=== PATIENT | male | born 1990 | race Caucasian/White ===

== ENCOUNTER 2021-06-11 07:50 | Emergency (ER) | payer OTHER, SELFPAY ==
[2021-06-11 08:11] VITALS: BP 128/88; PULSE 70; RESP 12; TEMP 36.6; O2SAT 99
--- NOTE | 2021-06-11 09:28 | ED.EYEPROB ---
HPI - Eye Problem General Chief complaint: Eye Problems Stated complaint: left eye pain Time Seen by Provider: 06/11/21 09:01 Source: patient Mode of arrival: ambulatory Limitations: no limitations History of Present Illness HPI Narrative: 30 years old white male, grinding yesterday, left eye foreign body. Denied vision abnormality, Related Data Allergies Allergy/AdvReac Type Severity Reaction Status Date / Time amoxicillin Allergy Severe Verified 03/28/17 10:55 Penicillins Allergy Severe Verified 03/28/17 10:55 Review of Systems Review of Systems: CONSTITUTIONAL: Denies fever, chills, or sweats. EYES: Denies visual changes, redness, or discharge. ENT: Denies rhinorrhea, congestion, sore throat, or otalgia. CARDIOVASCULAR: Denies chest pain, palpitations, or edema. RESPIRATORY: Denies cough or dyspnea. GASTROINTESTINAL: Denies abdominal pain, nausea, vomiting, or diarrhea. GENITOURINARY: Denies dysuria or hematuria. SKIN: Denies rash or itching. MUSCULOSKELETAL: Denies back pain, joint pain, or myalgia. NEUROLOGIC: Denies headache, numbness, or weakness. PSYCHIATRIC: Denies anxiety or depression. Exam Narrative: General appearance: Well-developed, well-nourished Head: Normocephalic, nontraumatic Eyes: Left conjunctival injection, corneal foreign body Neurologic: Alert and oriented ?3, PODIATRY TEACHER is normal as tested, no gross motor deficit Course Course Emergency Course: Stable Vital Signs Vital signs: Vital Signs Temperature 36.6 C 06/11/21 08:11 Pulse Rate 70 06/11/21 08:11 Respiratory Rate 12 06/11/21 08:11 Blood Pressure 128/88 06/11/21 08:11 Pulse Oximetry 99 06/11/21 08:11 Temperature 36.6 C 06/11/21 08:11 Pulse Rate 70 06/11/21 08:11 Respiratory Rate 12 06/11/21 08:11 Blood Pressure 128/88 06/11/21 08:11 Pulse Oximetry 99 06/11/21 08:11 Procedures FB Removal Eye Foreign Body #1: Foreign Body Removal Date: 06/11/21 Foreign Body Removal Time: 10:06 Time Out performed: Yes Location: eye (L) Topical anesthetic used: tetracaine Foreign body: other (Unknown) Evidence of corneal penetration: No Technique: cotton tip swab and needle Procedure performed under: direct visualization with magnification Post-procedure medication: ophthalmic antibiotic and topical anesthetic Patient tolerated procedure: well Complications: incomplete foreign body removal and residual rust ring MDM - Eye Problem MDM Narrative Medical decision making narrative: Foreign body left eye. Examination showed 1 mm foreign body left cornea, distal to the pupil, I was able to remove roughly most of it, still some remnant or stain of the foreign body. Patient will be evaluated by Dr. Mckeon, the folder tier at [facility] at 1 PM today. Differential Diagnosis Differential diagnosis: Likely corneal abrasion and other (Corneal foreign body) Critical Care Time Critical Care Time Critical Care Time: Yes Total Critical Care Time: 30 Discharge Plan Discharge Clinical Impression: Acute foreign body of cornea Qualifiers: Encounter type: initial encounter Laterality: left Qualified Code(s): T15.02XA - Foreign body in cornea, left eye, initial encounter Patient Disposition: Home, Self-Care Condition: Stable Instructions: Antibiotic Form Additional Instructions: Call [phone], Dr. Mckeon, folder tier at [facility], to see him at 1 PM today. At [address] [facility] clinical building, ground floor. Follow-up/Referrals: PHYSICIAN,[employer] HAT OPEN STACK ADMINISTRATOR [Primary Care Provider] -
[2021-06-11] MEDS: POLYMYXIN/TRIMETHOPRIM OPHTH 10 ML DROPS 3 DROP EACH EYE (10:11)
[2021-06-11 10:18] VITALS: BP 128/98; PULSE 54; RESP 14; O2SAT 95
== END 2021-06-11 10:20 | disposition home or self-care (01) ==
PROVIDERS: Emergency Provider Emergency Medicine
DX: T15.02XA Foreign body in cornea, left eye, initial encounter (principal)
CPT/HCPCS: 65220; 99283; A9270

== ENCOUNTER 2021-12-06 17:25 | Emergency (ER) | payer SELFPAY ==
[2021-12-06 17:30] VITALS: BP 138/73; PULSE 70; RESP 12; TEMP 36.6; O2SAT 99
--- NOTE | 2021-12-06 17:35 | ED.SKABFB ---
HPI - Skin/Abscess/Foreign Bdy General Chief complaint: Skin/Abscess/Foreign Body Stated complaint: Ingrown hair on neck Time Seen by Provider: 12/06/21 17:50 Source: patient and RN notes reviewed Mode of arrival: ambulatory Limitations: no limitations History of Present Illness HPI narrative: 31-year-old male presents with concern for an abscess to the back of his neck. He reports he has had a bump there for quite some time but over the last 2 days it has become irritated and larger after his mask is rubbing against it. He reports is tender to touch, otherwise it is not painful. He denies drainage from the area. He denies intervention. MD complaint: abscess/boil Related Data Allergies Allergy/AdvReac Type Severity Reaction Status Date / Time No Known Allergies Allergy Verified 12/06/21 17:36 Review of Systems Review of Systems: CONSTITUTIONAL: Denies malaise, chills, sweats, or fever. EYES: Denies redness, or discharge. ENT: Denies rhinorrhea, congestion, swollen lips, swollen tongue CARDIOVASCULAR: Denies chest pain, palpitations, or edema. RESPIRATORY: Denies cough or dyspnea. GASTROINTESTINAL: Denies abdominal pain, nausea, vomiting SKIN: Reports a tender bump in the back of his neck MUSCULOSKELETAL: Denies joint pain or myalgia. NEUROLOGIC: Denies headache. All systems reviewed & are unremarkable except as noted in HPI and below PMFSH Comments At time of signature, agree with nursing past medical, surgical, social and family history. There is no relevant family history pertinent to the presenting complaint Exam Narrative: GENERAL: Well-appearing, well-nourished, and in no acute distress. HEAD: Normocephalic, atraumatic. EYES: PERRLA, conjunctivae clear, and EOMI. ENT: Mucous membranes moist. Oropharynx without edema, erythema or lesions. NECK: Supple. No lymphadenopathy CHEST: Clear to auscultation. No respiratory distress. HEART: Regular rate and rhythm. SKIN: Warm, dry. 2.5 cm raised indurated fluctuant mildly erythematous area noted to the posterior neck at the base of the hairline NEURO: Alert and oriented x3. PSYCH: Normal mood and affect HENMT: Head images: 1. 2.5 cm raised indurated fluctuant area Course Course Emergency Course: Patient is aware of diagnosis, understands and agrees to treatment plan. Anticipatory guidance given. Patient agrees to follow-up as directed and is aware of reasons to seek care at the emergency department. Portions of this record may have been created with voice recognition software Level of Care: Express Care Visit Vital Signs Vital signs: Vital Signs Temperature 97.9 F 12/06/21 17:30 Pulse Rate 70 12/06/21 17:30 Respiratory Rate 12 12/06/21 17:30 Blood Pressure 138/73 12/06/21 17:30 Pulse Oximetry 99 12/06/21 17:30 Temperature 97.9 F 12/06/21 17:30 Pulse Rate 70 12/06/21 17:30 Respiratory Rate 12 12/06/21 17:30 Blood Pressure 138/73 12/06/21 17:30 Pulse Oximetry 99 12/06/21 17:30 Reviewed. Procedures Abscess I/D neck: Date of Incision: 12/06/21 Time of Incision: 17:58 Side (if applicable): left Local Anesthetic: lidocaine 1% Amount of anesthesia used (mL): 2 Technique: incised with #11 blade Amount of fluid expressed (mL): 1 Irrigation: Yes Packing used?: none I&D Results: Pus Abcess I&D Additional Comments: Most or all of sac able to be removed. Material expressed was not particularly purulent in nature, no culture felt needed at this time. Cephalexin prescribed for mild cellulitis MDM - Skin/Abscess/Foreign Bdy MDM Narrative Medical decision making narrative: Verbal consent was obtained. The indication for the procedure was clinical suspicion for an abscess. The region was anesthetized with 1% lidocaine. The most fluctuant portion of the abscess was incised with an 11 blade scalpel. The abscess cavity of explored and evacuated, all loculations were b
[2021-12-06 17:36] VITALS: BP 138/73; PULSE 70; RESP 12; TEMP 36.6; O2SAT 99
== END 2021-12-06 18:07 | disposition home or self-care (01) ==
PROVIDERS: Emergency Provider Nurse Practitioner
DX: L02.11 Cutaneous abscess of neck (principal)
CPT/HCPCS: 10060; 99213; G0463

== ENCOUNTER 2022-09-08 15:44 | Outpatient (CLI) | payer OTHER, SELFPAY ==
--- NOTE | ~2022-09-08 | CT_ITS ---
EXAMINATION: CT abdomen pelvis wo con DATE: 09/08/2022 16:04 INDICATION: Right inguinal hernia TECHNIQUE: Computed tomography (CT) of the abdomen and pelvis was performed without intravenous contr ast. Automated exposure control and iterative reconstruction technique were employed. Exam dose: 559 .21 mGy-cm total exam DLP. COMPARISON: None. FINDINGS: The lung bases are clear. Normal heart size. No pericardial or pleural effusion. The liver, gallbladder, bile ducts, spleen, pancreas, pancreatic duct, adrenal glands and kidneys are unremarkable on this limited noncontrast examination. No urinary tract calculus or hydroureteronephr osis. The urinary bladder and prostate gland are unremarkable. Small bilateral fat-containing inguinal hernias. Small fat-containing umbilical hernia. Normal caliber of the abdominal aorta. No intraperitoneal or retroperitoneal or pelvic mass lesion or adenopathy or ascites. Normal appendix. No bowel obstruction, bowel wall thickening, pneumatosis or intraperitoneal free air Included skeletal structures are unremarkable. IMPRESSION: Small bilateral fat-containing inguinal hernias and small fat-containing umbilical herni a Reviewed, dictated and finalized at [facility]. Reviewed, dictated and finalized at [facility]. OLOGY NURSE IMPRESSION: Small bilateral fat-containing inguinal hernias and small fat-cont aining umbilical hernia
== END 2022-09-08 15:45 | disposition home or self-care (01) ==
DX: K40.90 Unilateral inguinal hernia, without obstruction or gangrene, not specified as recurrent (principal); K42.9 Umbilical hernia without obstruction or gangrene
CPT/HCPCS: 74176

== ENCOUNTER 2022-10-31 10:58 | Outpatient (CLI) | payer OTHER, SELFPAY | END 2022-10-31 10:59 | disposition home or self-care (01) | LOC: ANHSURGERY 11:03 | PROVIDERS: Visit Provider Surgery | DX: K40.20 Bilateral inguinal hernia, without obstruction or gangrene, not specified as recurrent (principal) | CPT/HCPCS: 36415; 86850; 86900; 86901 ==

== ENCOUNTER 2022-11-09 00:33 | Day surgery (SDC) | payer OTHER, SELFPAY ==
[2022-10-27 13:26] VITALS: BMI 27.3
--- NOTE | 2022-10-27 13:54 | SUR.PREOP ---
Report to the Outpatient Waiting Room, entrance under the green pavilion located off [facility], at time 0930 on date 11/09/22. Planned Procedure Time: 929. Time changes happen often and if your time is changed the preop area will call you the afternoon before. - You and your visitor will be asked to self-screen and do not enter if you have any COVID symptoms. - Only one visitor is requested with a max of two and NO children visitors are allowed at this time. - The patient visitor may be requested to leave or wait in car when not with patient due to distancing restrictions. - A mask is optional within the hospital at this time. Patients may have clear liquids (water, carbonated beverages, clear teas, apple juice) until 3 hours prior to surgery with a maximum of 20 ounces. - No food from midnight until time of surgery - Infants may have breast milk until 4 hours before surgery, infant formula 6 hours prior to surgery. - Children will be allowed to drink immediately following surgery. If applicable, please bring a bottle or sippy cup to assist with drinking. Juice, water, soda, and popsicles are readily available. For infants on formula, please bring formula the day of surgery. Pacifiers are allowed. Take the following medications with a SIP of water the morning of surgery: N/A DO NOT STOP ANY OF YOUR OTHER PRESCRIPTION MEDICATIONS PRIOR TO SURGERY ?EXCEPT THE FOLLOWING Medications to discontinue per physician N/A Date to take last dose N/A Please no make-up, nail citizen of [place], hairspray, perfume, deodorant, or body powder the day of surgery. No jewelry (including any body piercings) or valuables the day of surgery, leave them at home. Please take a shower or bath the night before, or the morning of, surgery with an antibacterial soap. Wear comfortable, loose fitting clothing. Children are encouraged to wear pajamas. - Jewelry must be removed prior to entering the operating room. Rings and piercings that are not removed may be cut off. - The hospital will not accept responsibility for valuables. - Please leave all valuables, including medications, at home the day of surgery. If you are going home after surgery, a licensed commercial collections driver must drive you home. - NO public transportation without another adult if you receive anesthesia. - We recommend that an adult stay with you for 24 hours following discharge. - We also recommend that you do not drive, make important decision, drink alcoholic beverages, or take any drugs that were not prescribed by your health care provider for at least 24 hours after your discharge time. For Pediatric surgeries, we recommend two adults accompany the child home. Follow any additional instructions given to you from your surgeon. If you or anyone in your household have experienced Covid symptoms in the past week, please notify your surgeon or the nurse liaison at the phone number below for possible testing. Telephone instructions given to ____ANNIE ACUNA and asked if any additional questions and then verbalized understanding. Patient advised to call surgeon office or pre surgery nurse liaison [phone] if any additional questions.
[2022-11-09] VITALS (8 sets, daily range): BP systolic 123–151; BP diastolic 84–101; PULSE 55–88; RESP 12–16; TEMP 36.3; O2SAT 97–100
[2022-11-09] MEDS: ACETAMINOPHEN 500 MG TABLET 1000 MG PO (06:24)
[2022-11-09] MEDS: LACTATED RINGERS 1,000 ML 30 ML IV CONT ×3 (06:30→10:51)
[2022-11-09] MEDS: KETOROLAC 15 MG/ML VIAL (*BKC) IV PUSH (06:56)
--- NOTE | 2022-11-09 07:04 | P.PNAN_ITS ---
Anes - Initial Pre Proc Eval Procedure: Operation Date: 11/09/22 07:30 Proposed Procedures p Laparoscopic Bilateral Inguinal Hernia Repair with Mesh, Davinci Assisted - Umer Lugo DO Date/Time: 11/09/22 07:04 Surgeon: Umer Lugo DO Pre Op Diagnosis: Luis Ing Hernia Patient Data Age: 32 Gender: M Height: 1.75 m Weight: 86.7 kg Last Vital Signs Temp 36.3 C L 11/09/22 06:57 Pulse 62 11/09/22 06:57 Resp 16 11/09/22 06:57 BP 138/101 H 11/09/22 06:57 Pulse Ox 98 11/09/22 06:57 O2 Del Method Room Air 11/09/22 06:57 Allergies Allergy/AdvReac Type Severity Reaction Status Date / Time No Known Allergies Allergy Verified 11/09/22 06:09 Home Medications Medication Instructions Recorded Confirmed Type No Home Medications 09/29/22 09/29/22 History Patient hx anesthesia problems: none Family hx anesthesia problems: none Results Review: All pre-operative results and documents have been reviewed as part of the pre- operative evaluation. [facility] Family History Family History Mother Acute myocardial infarction Social History Social History Social History: caffeine use: drinks soda daily Years smoked: 5 Smoking status: Former smoker Alcohol intake: current Alcohol use details: beer socially Substance use type: marijuana Living arrangements: with family Additional living arrangements comments: Spiritual care concerns: No Anes - Eval Final PreProcedure Day of Procedure 11/09/22 07:04 Patient weight: overweight Heart: regular rate and rhythm Lungs: clear to auscultation Airway: Mallampati scale class II Neurological: alert and oriented Last oral intake: >/= 8 hours ASA classification: II Emergent: no Anesthetic plan: proceed Anesthesia type and monitoring: general LMA and standard monitoring Results Review: All pre-operative results and documents have been reviewed as part of the pre- operative evaluation. Informed Consent: The patient's anesthetic plan and its attendant risks and benefits were discussed with the patient/family/POA. Questions were solicited and answers provided to the satisfaction of the patient/family/POA.
--- NOTE | 2022-11-09 07:10 | PM.IMHP ---
H&P: HPI History of Present Illness Date/Time: 11/09/22 07:10 Chief Complaint: bilateral inguinal hernia Narrative: 32 yo man presents for bilateral inguinal hernia repair. He reports no changes since last seen in office. Review of Systems Review of Systems: All systems reviewed & are unremarkable except as noted in HPI and below Constitutional: Constitutional: Denies chills, Denies fever(s), Denies headache(s) and Denies weight loss Eyes: Eyes: Denies change in vision ENT: Denies dizziness, Denies headache(s), Denies neck mass and Denies throat swelling Cardiovascular: Cardiovascular: Denies chest pain, Denies lightheadedness and Denies dyspnea Respiratory: Respiratory: Denies cough, Denies dyspnea and Denies wheezing Gastrointestinal: Gastrointestinal: Denies abdominal pain, Denies change in bowel habits, Denies nausea and Denies vomiting Genitourinary: Genitourinary: Denies hematuria and Denies dysuria Musculoskeletal: Musculoskeletal: Reports as per HPI Integumentary/Breasts: Skin/Breast: Reports as per HPI Neurologic: Denies dizziness and Denies headache(s) Allergic/Immunologic: Allergic/Immunologic: Denies throat swelling and Denies wheezing PMFSH Family History Family History Mother Acute myocardial infarction Social History Social History Social History: caffeine use: drinks soda daily Years smoked: 5 Smoking status: Former smoker Alcohol intake: current Alcohol use details: beer socially Substance use type: marijuana Living arrangements: with family Additional living arrangements comments: Spiritual care concerns: No Meds Home Medications and Allergies Home Medications Medication Instructions Recorded Confirmed Type No Home Medications 09/29/22 09/29/22 History Allergies Allergy/AdvReac Type Severity Reaction Status Date / Time No Known Allergies Allergy Verified 11/09/22 06:09 Vital Signs Vital Signs - 24 hr 11/09/22 06:57 Temperature 36.3 C L Pulse Rate 62 Respiratory Rate 16 Blood Pressure 138/101 H Pulse Oximetry 98 Oxygen Delivery Room Air Exam Const: General: no acute distress and alert Orientation/consciousness: patient oriented x3 HENMT: Head: normocephalic and atraumatic Ears: hearing grossly normal bilaterally Face/Nose/Sinus: Normal nares present Mouth: Yes Normal oral and palatal mucosa present Eyes: Periorbital: periorbital findings normal Sclera: sclerae normal EOM: EOMs intact bilaterally Neck: Neck: normal visual inspection, no lymphadenopathy and trachea midline Chest: Chest palpation & inspection: normal inspection of the chest Resp: Effort & Inspection: normal respiratory effort Auscultation: clear to auscultation bilaterally Cardio: Jugular venous distension: no JVD Rate: regular rate Rhythm: regular rhythm Heart sounds: S1 normal heart sound present and S2 normal heart sound present Peripheral pulses: Peripheral pulses 2+ throughout GI: Inspection: normal to inspection GI Palp: Yes Soft to palpation, No Tenderness to palpation present (GI), No Guarding due to palpation present (GI) and No Rebound tenderness present Percussion: Yes normal to percussion Auscultation: normal bowel sounds : General: Yes no CVA tenderness Scrotum: inguinal hernia bilateral Back/Spine/Pelvis: Back: no CVA tenderness Neuro: General: patient oriented x3, no focal motor deficits and CN's II-XI intact bilaterally Cognition (Neuro): normal cognition Speech: normal speech Motor exam (neuro): 5/5 motor strength present throughout Extrem: General: capillary refill normal and no clubbing, cyanosis or edema Assessment and Plan Assessment and plan (1) Bilateral inguinal hernia: Code(s): K40.20 - Bilateral inguinal hernia, without obstruction or gangrene, not specified as recurrent Status: Ac
--- NOTE | 2022-11-09 07:15 | WPDHPUPDATE1 ---
History and Physical Update Update Date/Time: 11/09/22 07:15 History and Physical has been reviewed, including an updated exam of the patient. There are NO changes in the patient's condition. Risks, benefits, and alternatives have been discussed and questions answered. Patient agrees to proceed with procedure.
[2022-11-09] MEDS: ceFAZolin 2 GM/D5W 50 ML 2 GM/50 ML BAG IVPB (07:29)
[2022-11-09] MEDS: BUPIVACAINE/EPINEPHRINE 0.5% 10 ML VIAL 30 ML INFILTRATE (09:06)
--- NOTE | 2022-11-09 09:20 | W.PM.PROC2 ---
Procedure Note - Detailed Date of Procedure 11/09/22 Pre-op Diagnosis Luis Ing Hernia Post-op Diagnosis Other (Bilateral direct inguinal hernia, umbilical hernia) Procedure Performed 1. Laparoscopic bilateral inguinal hernia repair with mesh, da Nishi assisted 2. Open 1 cm umbilical hernia repair Surgeon Umer Lugo DO Anesthesia General and Local (0.5% bupivacaine with epinephrine) Indications This is a 32-year-old man who presented with a right groin bulge and discomfort. He had noticed this for the past 5 or [address] of his abdomen and pelvis performed which showed evidence of bilateral fat containing inguinal hernias and a small umbilical hernia. Umbilical hernia was not easily palpable on exam. Small bilateral hernias were identified on exam. Discussions were made with the patient about treatment options. On the day of the surgery he did say that he occasionally had some pain at his umbilicus. I discussed with him that I could assess that area laparoscopically during the surgery. Decision was made to proceed with robotic assisted laparoscopic bilateral inguinal hernia repair with mesh. Findings Laparoscopic bilateral inguinal hernia repair was performed. Upon inspecting the abdomen laparoscopically, it did appear that he had a very small umbilical hernia as well. He also had bilateral direct inguinal hernias. The right side was moderate-sized and the left side was small. Decision was made to repair the bilateral inguinal hernias laparoscopically and then also repair the small umbilical hernia open. The umbilical hernia lay measured about 1 cm. A robotic transabdominal preperitoneal approach was utilized for the bilateral inguinal hernia repairs. Once a wide enough preperitoneal pocket was created, I placed large right and left Bard 3DMax mid mesh is overlying the entire myopectineal orifice on each side. No specimens were obtained for pathology. The umbilical hernia was repaired using 0 Ethibond [id number] sutures. Description of Procedure Procedure as well as risks, benefits, and alternatives were discussed with the patient. Written consent was obtained and placed in chart prior to procedure. Patient was brought back to surgical suite. He was placed supine on operating table. Time-out was done to confirm patient and procedure. He was then intubated by Anesthesia Department. His abdomen was prepped and draped in sterile fashion using chlorhexidine prep. 0.5% bupivacaine with epinephrine was infiltrated at each location for incision. An 8 mm incision was made in the left lateral abdomen, and a 5 mm Optiview trocar was advanced through the abdominal layers under direct visualization. Once inside the abdominal cavity, carbon dioxide insufflation was used to create a pneumoperitoneum. A camera was inserted and the abdominal cavity was inspected. The patient was placed in slight Trendelenburg position. An 8 millimeter incision was made on the right lateral abdomen and an 8 millimeter trocar was inserted under direct visualization. Another 8 millimeter incision was made just superior to the umbilicus and an 8 millimeter trocar was inserted under direct visualization. The 5 mm port was then removed and this was replaced with another 8 mm robotic port. The robotic arms were brought up to the patient's bedside and secured to the ports. The camera and instruments were inserted. I then moved over to the robotic console and took control of the camera and instruments. After careful inspection of the abdominal cavity, I began scoring the peritoneum along the right lower quadrant using scissors with electrocautery. The preperitoneal plane was entered and this was carefully dissected caudally along the inferior epigastric vessels. Careful dissection with scissors with electrocautery and blunt dissection was used to continue this dissection. I dissected far enough laterally to allow for mesh placement, and also dissected medially t
[2022-11-09] MEDS: oxyCODONE HCL (*CRX) 5 MG TAB IR PO (10:51)
== END 2022-11-09 11:30 | disposition home or self-care (01) ==
PROVIDERS: Visit Provider Surgery
PROC: 8E0Y4CZ Robotic Assisted Procedure of Lower Extremity, Percutaneous Endoscopic Approach (ICD-10-PCS; CPT 49650; principal; 2022-11-09 07:30)
DX: K40.20 Bilateral inguinal hernia, without obstruction or gangrene, not specified as recurrent (principal); K42.9 Umbilical hernia without obstruction or gangrene; Z87.891 Personal history of nicotine dependence; F12.90 Cannabis use, unspecified, uncomplicated
CPT/HCPCS: 49650; 49591; S2900; A9270; C1781; J0690; J1100; J1170; J1885; J2250; J2405; J2704; J2710; J3010; J7030; J7120

== ENCOUNTER 2025-06-16 09:40 | Emergency (ER) | payer OTHER, SELFPAY ==
[2025-06-16 09:47] VITALS: BP 127/86; PULSE 60; RESP 16; TEMP 36.5; O2SAT 97
[2025-06-16] MEDS: TETANUS,DIPHTHERIA,AC PERTUSSIS ADULT (0.5 ML) BOOSTRIX IM (10:10)
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
== END 2025-06-16 10:24 | disposition home or self-care (01) ==
DX: S50.811A Abrasion of right forearm, initial encounter (principal); S60.512A Abrasion of left hand, initial encounter; S60.511A Abrasion of right hand, initial encounter; V18.4XXA Pedal cycle driver injured in noncollision transport accident in traffic accident, initial encounter; Z23 Encounter for immunization
CPT/HCPCS: 90471; 90715; 99213; G0463